=== PATIENT | male | born 1950 | race Caucasian/White ===

== ENCOUNTER 2018-08-27 15:37 | Observation (INO) | payer OTHER, MEDICARE ==
[2018-08-27] MEDS ORDERED: D50W 25 GM/50 ML SYRINGE IV PRN (17:47)
[2018-08-27] MEDS ORDERED: GLUCAGON 1 MG/VIAL IM PRN (17:47)
[2018-08-27 18:17] VITALS: BMI 28.3
[2018-08-27] MEDS ORDERED: HEPARIN 10,000 UNIT/10 ML VIAL IV ONE (18:30)
[2018-08-27] MEDS ORDERED: HEPARIN/D5W 25,000 UNIT/500 ML BAG IV PRN (18:30)
[2018-08-27 18:45] LABS: Absolute Lymphocytes (CBC) 2.1 K/uL (0.7-4.9); Absolute Monocytes 0.7 K/uL (0.1-1.3); Absolute Neutrophil 7.9 K/uL (1.8-8.0); Basophils % 0.8 % (0-1.3); Eosinophils % 1.6 % (0-4.4); Hematocrit 50.2 % (39.6-49.0); Lymphocytes % 19.1 % (15.3-44.8); MPV 8.3 fL (7.6-11.3); Monocytes % 6.4 % (3.3-12.3); RBC Red Blood Cell Count 5.42 M/uL (4.33-5.43)
[2018-08-27 18:49] LABS: Protime INR 0.93
[2018-08-27] MEDS: CLOPIDOGREL 75 MG TABLET PO SCH (18:52)
[2018-08-27] MEDS: ASPIRIN 81 MG CHEWABLE TABLET PO SCH (18:52)
[2018-08-27 18:58] LABS: Albumin 4.2 g/dL (3.4-5.0); Bilirubin Total 0.4 mg/dL (0.2-1.0); Potassium 4.4 mmol/L (3.5-5.1); Protein, Total 8.1 g/dL (6.4-8.2)
[2018-08-27] MEDS: INSULIN -REGULAR HUMAN 50 UNIT/0.5 ML ML SQ SCH (20:24)
[2018-08-27] MEDS ORDERED: predniSONE 20 MG TAB PO ONE (21:00)
[2018-08-27] MEDS: NICOTINE 7 MG/PAT TD SCH (22:03)
[2018-08-28 02:32] LABS: Urine Appearance TURBID; Urine Bilirubin NEGATIVE (NEG); Urine Blood 1+ (NEG); Urine Color YELLOW; Urine Glucose 3+ (NEG); Urine Protein 1+ (NEG); Urine Specific Gravity 1.015 (1.005-1.030)
[2018-08-28 03:04] LABS: Urine Bacteria LOADED /HPF (NONE SEEN); Urine Culture Reflex Order REFLEXED
[2018-08-28 03:05] LABS: Urine RBC <5 /HPF (NONE SEEN)
[2018-08-28 07:00] LABS: MPV 8.4 fL (7.6-11.3)
[2018-08-28] MEDS: INSULIN -REGULAR HUMAN 50 UNIT/0.5 ML ML SQ SCH ×3 (08:19→16:30)
[2018-08-28] MEDS: ASPIRIN 81 MG CHEWABLE TABLET PO SCH (09:23)
[2018-08-28] MEDS: CLOPIDOGREL 75 MG TABLET PO SCH (09:23)
[2018-08-28] MEDS ORDERED: HEPA 1000U/500MLS 2,000 UNIT/1,000 ML BAG IV ONE (10:27)
[2018-08-28] MEDS ORDERED: LIDOCAINE 1% MPF 5 ML VIAL ONE ×2 (10:28→10:43)
[2018-08-28] MEDS ORDERED: NA CHLORIDE 0.9% 500 ML ONE (10:50)
[2018-08-28] MEDS ORDERED: MIDAZOLAM HCL 2 MG/2 ML INJ ONE ×2 (11:01→11:13)
[2018-08-28] MEDS ORDERED: FENTANYL CITR 100 MCG/2 ML ONE (11:01)
[2018-08-28] MEDS ORDERED: METHYLPREDNISOLONE 125 MG INJ ONE (11:34)
[2018-08-28] MEDS ORDERED: HEPARIN 5000 UNIT/ML 1 ML VIAL ONE (11:47)
[2018-08-28] MEDS: NICOTINE 7 MG/PAT TD SCH (13:33)
[2018-08-28 13:39] VITALS: O2SAT 98
[2018-08-28 18:48] VITALS: BP 143/82; TEMP 97.7
--- NOTE | 2018-08-29 02:25 | HP ---
Date of Admission: 08/27/2018 Chief Complaint: Pain resting left leg. History Of Present Illness: A 68-year-old male, was brought to the office with pain in the left leg. His foot was found to be pale without any dorsalis pedis pulse. A diagnosis of acute on chronic is chemia was made. Outpatient Doppler study showed evidence of obstruction at popliteal artery level. At this point, the patient was admitted for observation for possible angioplasty. Past Medical History: Positive for type 2 diabetes and hypertension. Family History: Noncontributory. Personal History: Allergic to iodine. Review of Systems: No chest pain or shortness of breath. Physical Examination: General: Revealed 68-year-old male, in sgbo-[id number] pain. HEENT: Negative. Neck: Supple. JVD negative. Chest: Clear. Heart: Regular. Abdomen: Soft. Extremities: There is a pallor of the foot starting from mid leg all the way to the toes. Pedalis p ulses are absent. Femoral pulse is present. Assessment: 1.Acute on chronic limb ischemia, symptomatic. 2.Type 2 diabetes. Plan: Heparin IV. Cardiology consultation. VLADISLAV/KIMI Voice ID: [id number]
--- NOTE | 2018-08-29 13:07 | CON ---
Date of Consultation: 08/27/2018 Reason For Consultation: Acute limb ischemia. History Of Present Illness: Mr. Burciaga is a 68-year-old white male without any previous cardiac hist ory, but has a history of hypertension, diabetes, dyslipidemia, tobacco use. Has been having some cl audication over his left leg that has gotten much worse recently. He was sent from Dr. Lamb's offic e to my office for an arterial Doppler and was found to have a complete occlusion of his popliteal ar radha. Dr. Lamb has contacted me for consultation regarding Mr. Burciaga [facility] and [facility]. He was to be started on aspirin, Plavix, and hepari n, and re-evaluated with an angiography the second day. Past Medical History: His past medical history was otherwise stated above. Allergies: HE IS ALLERGIC TO IODINE. Review of Systems: Negative. Social History: Positive for tobacco. Family History: Noncontributory. Medications: Medications at home includes aspirin, glyburide. Physical Examination: Vital Signs: Stable. He was afebrile. He was in sinus rhythm. HEENT: Negative. Neck: Supple without any bruit, lymphadenopathy, JVD, or thyromegaly. Chest: Clear to auscultation and percussion. Cardiac Exam: Revealed a regular rhythm and rate. No murmurs, gallops, or rubs. Abdomen: Benign. Extremities: Revealed no clubbing, cyanosis, or edema. He had no pulses in the left foot. The foot was cool to touch. The right foot was normal. Diagnostic Data: Unremarkable. EKG and chest x-ray were negative. Impression And Plan: Peripheral arterial disease with 100% occlusion of the left popliteal. We will start aspirin, Plavix, heparin drip. We will plan abdominal angiogram in the morning with runoff an d see if we can intervene. We will pre-treat him with prednisone tonight and then tomorrow. He will get IV Solu-Medrol prior to the case because of his allergy to iodine. His other problems including hypertension, diabetes, and dyslipidemia are well controlled at this point. He will eventually need to have a cardiac workup for cardiac clearance if he needs any surgery. I will discuss the case fur ther with Dr. Lamb. NB/MODL Voice ID: [id number] Report ID: [id number]
--- NOTE | 2018-08-29 20:10 | OP ---
Surgeon: Virgilio Perea MD Proration Clerk: Inocente Issa. Procedure: Abdominal angiogram with runoff with an attempt of an angioplasty on the left popliteal t hat failed. Indication: Claudication, severe peripheral arterial disease and abnormal arterial Doppler. History Of Present Illness: Mr. Burciaga is 68, admitted with the limb ischemia on the left side and p laced on heparin, aspirin low and Plavix overnight, improved as far as his foot is concerned. Procedure In Detail: He was brought to the bolt labeler. He was given 2 mg of Versed for IV sedation. He was prepped and draped in the routine sterile fashion. A 6-Lao sheath introduced in the right common femoral artery. Angiography there was normal. Angio-Seal was used to close the case. Pigtai l catheter was used to do an abdominal angiogram with runoff, which showed normal renals, normal sple chucky and hepatic artery. Normal iliacs. His right lower extremity was normal. His left lower extrem ity showed a complete occlusion of his popliteal with the collateral flow below the knee. I was able to place a [place] wire very close to the lesion, advanced the GARNER catheter, bit close to the lesion for a better angiography that showed no distal reconstitution of the popliteal with collateral flow. I attempted to cross with a Venus wire and it was obvious that the lesion was very old and calcifi ed. Complications: None. Blood Loss: 5 cc. Final Diagnosis: Severe peripheral arterial disease. Total conscious sedation was 45 minutes. Plan: Plan is for medical therapy at this point with aspirin, Plavix and Trental, and referral to [facility] for possible, although doubtful revascularization. The case will be discussed with Dr Minal Lamb and the family. PER/KIMI Voice ID: [id number] Report ID: [id number]
== END 2018-08-28 17:45 | disposition home or self-care (01) ==
LOC: 4TH 17:25
PROVIDERS: ADMIT Internal Medicine; ATTEND Internal Medicine
DX: I70.212 Atherosclerosis of native arteries of extremities with intermittent claudication, left leg (principal); E11.51 Type 2 diabetes mellitus with diabetic peripheral angiopathy without gangrene; I10 Essential (primary) hypertension; E78.5 Hyperlipidemia, unspecified
CPT/HCPCS: 87088; 85025; 81001; 87086; 36415; 85049; 85610; 82962 ×4; 85730 ×5; 80053; 36200; 75630; 93923; C1893; C1760; J1644; J2250 ×2; J3010; J2930; G0378 ×2; C9601; J7512

== ENCOUNTER 2018-10-15 07:12 | Day surgery (SDC) | payer OTHER, MEDICARE ==
--- NOTE | 2018-10-11 10:44 | RAD REPORT ---
EXAM DESCRIPTION: RAD - Chest Pa And Lat (2 Views) - 10/11/2018 10:37 am CLINICAL HISTORY: preop Chest pain. COMPARISON: CHEST PA AND LAT 2 VIEW dated 09/11/2012 FINDINGS: The lungs are clear. The heart is normal in size. No displaced fractures. IMPRESSION: No acute or concerning finding suspected.
[2018-10-11 10:59] LABS: Absolute Lymphocytes (CBC) 1.4 K/uL (0.7-4.9); Absolute Monocytes 0.3 K/uL (0.1-1.3); Absolute Neutrophil 3.6 K/uL (1.8-8.0); Basophils % 1.2 % (0-1.3); Eosinophils % 2.6 % (0-4.4); Hematocrit 47.2 % (39.6-49.0); MPV 8.5 fL (7.6-11.3); Monocytes % 4.8 % (3.3-12.3); RBC Red Blood Cell Count 5.12 M/uL (4.33-5.43)
[2018-10-11 11:08] LABS: Protime INR 0.96
[2018-10-11 11:14] LABS: BUN Blood Urea Nitrogen 17 mg/dL (7-18); Bicarbonate 30 mmol/L (21-32); Glucose Level 310 mg/dL (74-106); Potassium 4.4 mmol/L (3.5-5.1); Sodium Level 140 mmol/L (136-145)
--- OUTSIDE RECORDS SUMMARY | 2018-10-15 07:14 | XMS REPORT | Clinical Summary ---
:1950 Author Organization [facility] Address [address] [place] [id number] Care Team Providers Name Role Phone Pcp, No Primary Care Provider Unavailable Allergies No Known Allergies Medications Medication Sig Dispensed Refills Start Date End Date Status tamsulosin (FLOMAX) 0.4 TK ONE C PO QHS 0 07/11/2018 Active mg Cap 24 hr capsule glimepiride (AMARYL) 2 MG TK 1 T PO BID 0 07/11/2018 Active tablet pentoxifylline (TRENTAL) Take 400 mg by 0 08/28/2018 Active 400 mg CR tablet mouth 2 (two) times daily. atorvastatin (LIPITOR) 40 Take 40 mg by 0 08/28/2018 Active MG tablet mouth daily. clopidogrel (PLAVIX) 75 Take 75 mg by 0 08/28/2018 Active mg tablet mouth every morning. losartan (COZAAR) 50 MG Take 50 mg by 0 Active tablet mouth daily. Active Problems Problem Noted Date Non-insulin dependent type 2 diabetes mellitus Hypertension Blood clotting tendency Overview: right calf DVT PAD (peripheral artery disease) Encounters Date Type Specialty Care Team Description 09/05/2018 Office Visit Cardiology Conrado Elaine Non-insulin dependent type 2 diabetes mellitus (HCC); MD Reynaldo Essential hypertension; Blood clotting tendency (HCC); PAD (peripheral artery disease) (HCC) after 10/14/2017 Family History Medical History Relation Name Comments Heart disease Brother Cancer Father Liver cancer Father Cancer Mother Diabetes Mother Relation Name Status Comments Brother Father Mother Social History Tobacco Use Types Packs/Day Years Used Date Current Every Day Smoker 1.5 45 Smokeless Tobacco: Never Used Tobacco Cessation: Ready to Quit: Yes Alcohol Use Drinks/Week oz/Week Comments No Alcohol Habits Answer Date Recorded How often do you have a drink containing alcohol? Never 09/05/2018 How many drinks containing alcohol do you have on a typical Not asked day when you are drinking? How often do you have six or more drinks on one occasion? Not asked Sex Assigned at Date Recorded Not on file Job Start Date Occupation Industry Not on file Not on file Not on file Travel History Travel Start Travel End No recent travel history available. Last Filed Vital Signs Vital Sign Reading Time Taken Blood Pressure 139/66 09/05/2018 10:04 AM [employer] Pulse 87 09/05/2018 10:04 AM [employer] Temperature 36.7 C (98 F) 09/05/2018 10:04 AM [employer] Respiratory Rate 14 09/05/2018 10:04 AM [employer] Oxygen Saturation 98% 09/05/2018 10:04 AM [employer] Inhaled Oxygen Concentration - - Weight 88 kg (194 lb) 09/05/2018 10:04 AM [employer] Height 176.5 cm (5' 9.5") 09/05/2018 10:04 AM [employer] Body Mass Index 28.24 09/05/2018 10:04 AM [employer] Plan of Treatment Not on file Results Not on fileafter 10/14/2017 Insurance Payer Benefit Plan / Group Subscriber ID Type Phone Address MEDICARE MEDICARE A B xxxxxxxxxxx Medicare MCR SUPPLEMENT/INDIVIDUAL AARP/[facility] xxxxxxxxxxx [facility]
[2018-10-15] MEDS ORDERED: NA CHLORIDE 0.9% 500 ML ONE (07:49)
[2018-10-15] MEDS ORDERED: MIDAZOLAM HCL 2 MG/2 ML INJ ONE ×2 (07:59→08:56)
[2018-10-15] MEDS ORDERED: HEPA 1000U/500MLS 1,000 UNIT/500 ML BAG IV ONE (07:59)
[2018-10-15] MEDS ORDERED: FENTANYL CITR 100 MCG/2 ML ONE (07:59)
[2018-10-15] MEDS ORDERED: NA CHLORIDE 0.9% 0 ML ONE (07:59)
[2018-10-15] MEDS ORDERED: ATROPINE SULF 1 MG/10 ML SYR IV ONE (07:59)
[2018-10-15] MEDS ORDERED: METHYLPREDNISOLONE 125 MG INJ ONE (08:53)
[2018-10-15] MEDS ORDERED: GLUCAGON 1 MG/VIAL IM PRN (10:49)
[2018-10-15] MEDS ORDERED: D50W 25 GM/50 ML SYRINGE IV PRN (10:49)
[2018-10-15 11:15] VITALS: BP 134/75; TEMP 99; O2SAT 97
[2018-10-15] MEDS ORDERED: INSULIN -REGULAR HUMAN 50 UNIT/0.5 ML ML SQ SCH (11:30)
--- NOTE | 2018-10-15 17:16 | OP ---
Surgeon: Virgilio Perea MD Tour Driver: Inocente Issa. Indications: Admitted to my service my service as an outpatient. He is a patient of Dr. Muniz, who w as admitted for left heart catheterization because of an abnormal stress test. Procedure In Detail: Mr. Burciaga was brought to the labor supervisor and prepped and draped in the routine st erile fashion. He was given 4 mg of Versed, 50 of fentanyl, 125 mg of IV Solu-Medrol because of dye allergies. The procedure that was performed was left heart catheterization and selective coronary ar teriogram. A 6-Syriac sheath was inserted in the right common femoral artery. StarClose was used to close the case. Angiography using Saw catheter showed triple-vessel disease with an 80% very lo ng RCA stenosis. The RCA was not dominant. There was a 99% ostial circumflex extended to the first OM with a UTE 1 flow and OM and the circumflex distally. He was very left dominant. He had an 80% stenosis in the LAD after the first diagonal, mid LAD. There were no complications. Blood Loss: 5 cc. Total conscious sedation was 30 minutes. Final Diagnosis: Severe coronary artery disease. Plan: For coronary artery bypass surgery. PER/KIMI Voice ID: [id number] Report ID: [id number]
== END 2018-10-15 11:05 | disposition home health service (06) ==
LOC: CCL 07:12
DX: I25.10 Atherosclerotic heart disease of native coronary artery without angina pectoris (principal); I65.23 Occlusion and stenosis of bilateral carotid arteries; I10 Essential (primary) hypertension; E78.6 Lipoprotein deficiency; E11.51 Type 2 diabetes mellitus with diabetic peripheral angiopathy without gangrene; N40.0 Benign prostatic hyperplasia without lower urinary tract symptoms; F17.210 Nicotine dependence, cigarettes, uncomplicated; Z79.84 Long term (current) use of oral hypoglycemic drugs; Z79.899 Other long term (current) drug therapy
CPT/HCPCS: 85025; 80048; 36415; 85610; 82962 ×2; 85730; 71046; 93454; C1893; J2250 ×2; J3010; J2930; J0583

== ENCOUNTER 2022-05-03 07:56 | Day surgery (SDC) | payer OTHER, MEDICARE ==
--- NOTE | 2022-05-01 13:58 | RAD REPORT ---
EXAM DESCRIPTION: Tavares Jensen (2 Views)05/01/2022 1:50 pm CLINICAL HISTORY: pre op for surgery prior heart surgery COMPARISON: 2019 FINDINGS: The lungs appear clear of acute infiltrate. The heart is normal size. Postsurgical changes involve chest IMPRESSION: No acute abnormalities displayed
[2022-05-01 14:04] LABS: Absolute Lymphocytes (CBC) 1.7 K/uL (0.7-4.9); Hematocrit 41.4 % (39.6-49.0); Lymphocytes % 22.2 % (15.3-44.8); MCV 89.5 fL (80-100); MPV 7.2 fL (7.6-11.3); RBC Red Blood Cell Count 4.62 M/uL (4.33-5.43)
[2022-05-01 14:15] LABS: Potassium 4.3 mmol/L (3.5-5.1)
[2022-05-01 14:23] LABS: SARS-CoV-2 Antigen Rapid Res Negative (Negative)
--- NOTE | 2022-05-03 06:36 | EKG ---
Test Date: 2022-05-01 Test Time: 13:34:42 Rail Director: JASON MEASUREMENT RESULTS: Intervals: Rate: 73 KS: 176 QRSD: 104 QT: 402 QTc: 442 [place]: P: 20 KS: 176 QRS: -52 T: 13 INTERPRETIVE STATEMENTS: Sinus rhythm with frequent premature ventricular complexes and premature atrial complexes Left axis deviation Inferior infarct, age undetermined Abnormal ECG No previous ECG available for comparison Electronically Signed On 05-03-22 06:31:59 CDT by Virgilio Perea
[2022-05-03] MEDS ORDERED: CEFAZOLIN SODIUM 1 GM/VIAL ONE (08:24)
[2022-05-03] MEDS ORDERED: NA CHLORIDE 0.9% 1,000 ML ONE (08:24)
[2022-05-03 08:38] LABS: Protime INR 1.3
[2022-05-03] MEDS ORDERED: BUPIVACAINE 0.5% PF 10 ML VIAL SQ ONE ×2 (08:56→09:54)
[2022-05-03] MEDS ORDERED: propofoL 200 MG/20 ML VIAL IV ONE (09:30)
[2022-05-03] MEDS ORDERED: FENTANYL CITR 100 MCG/2 ML ONE (09:30)
[2022-05-03] MEDS ORDERED: ONDANSETRON 4 MG/2 ML VIAL ONE (09:31)
[2022-05-03] MEDS ORDERED: MIDAZOLAM HCL 2 MG/2 ML INJ ONE (09:31)
[2022-05-03] MEDS ORDERED: LIDOCAINE 1% MPF 5 ML VIAL ONE (09:31)
[2022-05-03] MEDS ORDERED: dexAMETHasone 4 MG/ML VIAL ONE (09:59)
[2022-05-03] MEDS ORDERED: EPHEDRINE SULF 50 MG/ML VIAL ONE (10:04)
[2022-05-03] MEDS ORDERED: HYDROCODONE/APAP 7.5/325 MG TAB PO PRN (10:30)
--- NOTE | 2022-05-03 10:37 | P.OP ---
Date of Service: 05/03/22 Preop diagnosis: Inflamed cyst left upper back Postop diagnosis: Same Procedure performed: Wide excision left upper back mass 10 x 4 cm with layered closure Surgeon: Reid Vasquez MD Brim Rounder: NORMA Barnes Estimated blood loss: Minimal Specimen: Cultures and cyst Findings: As above Anesthesia: General Complications: None Drains: Quarter-inch Richard drain Fluids and blood products: Nonapplicable Disposition: Recovery room Operative note: Patient brought to the OR and placed in supine position. General anesthesia begun. Patient placed in the right lateral position. Patient prepped and draped in usual sterile fashion. Marcaine 0.5% infiltrated for postop pain control. 15 blade used to make a 10 x 4 cm incision. Entire cyst down through the deep subcutaneous tissue excised and sent to pathology as specimen. Wound irrigated and bleeding controlled with cautery. Flaps created. Quarter inch [place] drain placed and secured with 3-0 nylon. 0 chromic and 2- 0 chromic used to close the subcutaneous tissue. 3-0 nylon used to loosely close skin. Sterile dressing applied and patient awakened. Patient taken to recovery room in good general condition. CC: Dr. Lamb's office
[2022-05-03 11:58] VITALS: BP 108/50; TEMP 96.4; O2SAT 100
[2022-05-03] MEDS ORDERED: HYDROCODONE/APAP 7.5/325 MG TAB ONE (12:00)
== END 2022-05-03 12:13 | disposition home or self-care (01) ==
LOC: OR 07:56
PROVIDERS: ATTEND Surgery
PROC: 0JB70ZZ Excision of Back Subcutaneous Tissue and Fascia, Open Approach (ICD-10-PCS; principal; 2022-05-03 09:00)
DX: L72.0 Epidermal cyst (principal); Z20.822 Contact with and (suspected) exposure to COVID-19; I10 Essential (primary) hypertension; I25.10 Atherosclerotic heart disease of native coronary artery without angina pectoris; F17.210 Nicotine dependence, cigarettes, uncomplicated
CPT/HCPCS: 36415; 71046; 80048; 82947; 85025; 85610; 87070; 87075; 87205; 87811; 88304; 88305; 93005; J0690; J1100; J2001; J2250; J2405; J2704; J3010; J7030

== ENCOUNTER 2023-03-19 07:00 | Day surgery (SDC) | payer OTHER, MEDICARE ==
[2023-03-13 11:44] LABS: Absolute Lymphocytes (CBC) 1.2 K/uL (0.7-4.9); Hematocrit 42.5 % (39.6-49.0); MCV 90.6 fL (80-100); MPV 8.5 fL (7.6-11.3); Platelets 195 thou/uL (152-406); RBC Red Blood Cell Count 4.69 M/uL (4.33-5.43)
--- NOTE | 2023-03-13 11:48 | RAD REPORT ---
EXAM DESCRIPTION: RAD - Chest Pa And Lat (2 Views) - 03/13/2023 11:32 am CLINICAL HISTORY: Pre op pending heart catheterization Chest pain. COMPARISON: Chest Pa And Lat (2 Views) dated 05/01/2022; Chest Pa And Lat (2 Views) dated 10/11/2018; C HEST PA AND LAT 2 VIEW dated 09/11/2012 TECHNIQUE: PA and lateral views of the chest were obtained. FINDINGS: The lungs are hyperexpanded compatible with COPD. The heart is upper limit of normal in si ze. No fracture or aggressive bony process. Sternotomy wires. IMPRESSION: COPD without acute process identified. The USPSTF recommends annual screening for lung cancer with low-dose CT (LDCT) in adults aged 50 to 8 0 years who have a 20 pack-year smoking history and currently smoke or have quit within the past 15 y ears.
[2023-03-13 11:50] LABS: Protime INR 3.16
[2023-03-13 11:59] LABS: Potassium 4.2 mEq/L (3.5-5.1)
--- NOTE | 2023-03-14 17:37 | EKG ---
Test Date: 2023-03-13 Test Time: 11:11:20 Cytology Supervisor: BLANCHE MEASUREMENT RESULTS: Intervals: Rate: 77 DC: 188 QRSD: 100 QT: 360 QTc: 407 [place]: P: 69 DC: 188 QRS: -70 T: 64 INTERPRETIVE STATEMENTS: Sinus rhythm with frequent premature ventricular complexes Possible Left atrial enlargement Left axis deviation Inferior infarct, age undetermined Abnormal ECG Compared to ECG 03/13/2023 11:10:12 No significant changes Electronically Signed On 03-14-23 17:34:16 CDT by Dao Davis
--- NOTE | 2023-03-14 17:38 | EKG ---
Test Date: 2023-03-13 Test Time: 11:10:12 Sign Painter Helper: BLANCHE MEASUREMENT RESULTS: Intervals: Rate: 75 SC: 184 QRSD: 100 QT: 374 QTc: 417 [place]: P: 72 SC: 184 QRS: -73 T: 84 INTERPRETIVE STATEMENTS: Sinus rhythm with frequent and consecutive premature ventricular complexes Left axis deviation Inferior infarct, age undetermined Abnormal ECG Compared to ECG 05/01/2022 13:34:42 Atrial premature complex(es) no longer present Myocardial infarct finding still present Electronically Signed On 03-14-23 17:34:24 CDT by Dao Davis
[2023-03-19] MEDS ORDERED: NA CHLORIDE 0.9% 500 ML ONE (07:22)
[2023-03-19] MEDS ORDERED: HEPA 1000U/500MLS 2,000 UNIT/1,000 ML BAG IV ONE (07:41)
[2023-03-19] MEDS ORDERED: CLOPIDOGREL 75 MG TABLET ONE (07:42)
[2023-03-19] MEDS ORDERED: FENTANYL CITR 100 MCG/2 ML ONE (07:42)
[2023-03-19] MEDS ORDERED: MIDAZOLAM HCL 2 MG/2 ML INJ ONE (07:42)
[2023-03-19] MEDS ORDERED: DIPHENHYDRAMINE 50 MG/ML VIAL ONE (07:42)
[2023-03-19] MEDS ORDERED: ATROPINE SULF 1 MG/10 ML SYR IV ONE (07:43)
[2023-03-19] MEDS ORDERED: ASPIRIN 325 MG TAB ONE (07:43)
[2023-03-19] MEDS ORDERED: METHYLPREDNISOLONE 125 MG INJ ONE (07:43)
[2023-03-19] MEDS ORDERED: TICAGRELOR 90 MG TABLET PO ONE (07:43)
[2023-03-19] MEDS ORDERED: LIDOCAINE 1% 20 ML MDV ONE (08:21)
[2023-03-19] MEDS ORDERED: HEPARIN 10,000 UNIT/10 ML VIAL IV ONE (08:52)
[2023-03-19 09:28] VITALS: TEMP 97.2
[2023-03-19 10:43] VITALS: BP 121/71; O2SAT 97
--- NOTE | 2023-03-19 18:00 | OP ---
Date of Procedure: 03/19/2023 Surgeon: BRIGID RITTER Procedures Performed: Selective coronary angiogram with bypass graft study. Indication: Chest pain with abnormal stress test. Access: Left femoral artery, 6-Malawian, closed with 6-Malawian Angio-Seal. An attempt to access the [facility] femoral artery failed, status post manual pressure. Complications: None. Bleeding: Less than 20 mL. Anesthesia: Total sedation time was 45 minutes, used fentanyl, Versed. Description Of Procedure: After risks, benefits, and alternatives were explained, patient agreed to proceed and signed informal consent. Patient was brought into the cardiac catheterization laboratory , prepped and draped in usual sterile fashion. Then, I tried to access right femoral artery. I was able to cannulate the vessel, however, could not send the sheath in due to heavy scar tissue, so the access was abandoned and then manual pressure was applied for 20 minutes with good hemostasis. Then, I accessed the left femoral artery using micropuncture kit, ultrasound guidance, fluoroscopy, placed 6-Malawian [place] sheath. We took a 6-Malawian JL4 catheter into the aortic root over a J-wire, engag ed left main, took standard views and then exchanged for a 6-Malawian JR4 catheter into the aortic root , engaged the RCA, SVG to OM and GARNER to LAD and took standard views and the catheter was removed. S ashley was removed. 6-Malawian Angio-Seal was used for closure. Good hemostasis. Findings: 1.Left main; long with luminal irregularities. 2.LAD; proximal 40%, mid becomes 90%, and diagonal branches have luminal irregularities. 3.Left circumflex is 99% to 100% proximally. 4.RCA, very small, nondominant, 80% diffuse proximal to distal. Bypass Graft Study: 1.Patent GARNER to LAD. 2.Patent SVG to OM that is very large and dominant. Conclusion: 1.Severe multivessel [place] coronary artery disease. 2.Patent SVG graft to OM and GARNER to LAD. 3.Severe RCA disease, but small, nondominant and the left circumflex is dominant with good perfusion through the graft. Plan: Medical management. SR/MODL Voice ID: [id number] Report ID: [id number]
== END 2023-03-19 10:55 | disposition home or self-care (01) ==
LOC: CCL 07:00
PROVIDERS: ATTEND Internal Medicine
DX: I25.10 Atherosclerotic heart disease of native coronary artery without angina pectoris (principal); I25.82 Chronic total occlusion of coronary artery; I65.23 Occlusion and stenosis of bilateral carotid arteries; I70.213 Atherosclerosis of native arteries of extremities with intermittent claudication, bilateral legs; I10 Essential (primary) hypertension; E78.2 Mixed hyperlipidemia; E11.9 Type 2 diabetes mellitus without complications; Z95.1 Presence of aortocoronary bypass graft; Z87.891 Personal history of nicotine dependence; Z91.041 Radiographic dye allergy status; Z79.899 Other long term (current) drug therapy
CPT/HCPCS: 93005 ×2; 85025; 80048; 36415; 85610; 85730; 71046; 93454; 76937; C1893; Q9966; C1760; G0269; J2001; J1200; J2250; J3010; J2930; J7040; J0461

== ENCOUNTER 2024-07-01 12:00 | Day surgery (SDC) | payer OTHER, MEDICARE ==
[2024-06-27 16:00] LABS: Absolute Basophils 0.1 K/uL (0-0.5); Absolute Eosinophils 0.1 K/uL (0-0.5); Absolute Lymphocytes (CBC) 1.9 K/uL (0.7-4.9); Absolute Monocytes 0.6 K/uL (0.1-1.3); Basophils % 0.7 % (0-1.3); Eosinophils % 1.4 % (0-4.4); Hematocrit 40.9 % (39.6-49.0); Hemoglobin 13.8 g/dL (13.6-17.9); Lymphocytes % 17.4 % (15.3-44.8); MCH 31.2 pg (27.0-35.0); MCHC 33.7 g/dL (32.0-36.0); MCV 92.8 fL (80-100); MPV 7.6 fL (7.6-11.3); Monocytes % 5.8 % (3.3-12.3); Neutrophils % 74.7 % (41.7-73.7); Platelets 234 thou/uL (152-406); Red Cell Distribution Width 13.5 % (12.1-15.2)
--- NOTE | 2024-06-27 16:05 | RAD REPORT ---
EXAMINATION: TWO VIEW CHEST XR CLINICAL INDICATION: pre op TECHNIQUE: 2 views of the chest was performed. COMPARISON: No prior exam. FINDINGS: The lungs are well inflated and clear. The heart is normal in size. No displaced fractures evident. S ternotomy wires. IMPRESSION: No acute or significant abnormalities.
[2024-06-27 16:09] LABS: PT Prothrombin Time 50.5 SECONDS (9.4-12.5); PTT, Activated Partial Thromb 56.5 SECONDS (24.3-36.9); Protime INR 4.72
[2024-06-27 16:12] LABS: Anion Gap 6.6 mEq/L (5.0-15.0); Potassium 3.6 mEq/L (3.5-5.1)
[2024-07-01 12:51] LABS: PT Prothrombin Time 15.1 SECONDS (9.4-12.5); Protime INR 1.36
[2024-07-01] MEDS ORDERED: HEPARIN 10,000 UNIT/10 ML VIAL IV ONE (13:52)
[2024-07-01] MEDS ORDERED: HEPA 1000U/500MLS 1,000 UNIT/500 ML BAG IV ONE (13:52)
[2024-07-01] MEDS ORDERED: LIDOCAINE 1% 20 ML MDV ONE (13:53)
[2024-07-01] MEDS ORDERED: VERAPAMIL HCL 10 MG/4 ML VIAL IV ONE (13:53)
[2024-07-01] MEDS ORDERED: MIDAZOLAM HCL 2 MG/2 ML INJ ONE (13:53)
[2024-07-01] MEDS ORDERED: TICAGRELOR 90 MG TABLET PO ONE (13:54)
[2024-07-01] MEDS ORDERED: ASPIRIN 325 MG TAB ONE (13:54)
[2024-07-01] MEDS ORDERED: CLOPIDOGREL 75 MG TABLET ONE (13:54)
[2024-07-01] MEDS ORDERED: ATROPINE SULF 1 MG/10 ML SYR IV ONE (13:54)
[2024-07-01] MEDS ORDERED: HEPARIN 5000 UNIT/ML 1 ML VIAL ONE (13:54)
[2024-07-01] MEDS ORDERED: FENTANYL CITR 100 MCG/2 ML ONE (13:54)
[2024-07-01] MEDS ORDERED: METHYLPREDNISOLONE 125 MG INJ ONE (14:13)
[2024-07-01] MEDS ORDERED: DIPHENHYDRAMINE 50 MG/ML VIAL ONE (14:13)
[2024-07-01] MEDS: NA CHLORIDE 0.9% 500 ML ONE (15:05)
[2024-07-01 16:04] VITALS: TEMP 98.5
[2024-07-01 16:33] VITALS: O2SAT 97
[2024-07-01 17:54] VITALS: BP 136/62
== END 2024-07-01 17:00 | disposition home or self-care (01) ==
LOC: CCL 12:00
PROVIDERS: ATTEND Internal Medicine
DX: I25.10 Atherosclerotic heart disease of native coronary artery without angina pectoris (principal); I25.82 Chronic total occlusion of coronary artery; I11.0 Hypertensive heart disease with heart failure; I50.22 Chronic systolic (congestive) heart failure; I65.23 Occlusion and stenosis of bilateral carotid arteries; I70.213 Atherosclerosis of native arteries of extremities with intermittent claudication, bilateral legs; E78.2 Mixed hyperlipidemia; E11.9 Type 2 diabetes mellitus without complications; N40.0 Benign prostatic hyperplasia without lower urinary tract symptoms; Z95.1 Presence of aortocoronary bypass graft; Z79.01 Long term (current) use of anticoagulants; Z79.82 Long term (current) use of aspirin; Z79.899 Other long term (current) drug therapy; Z91.041 Radiographic dye allergy status; Z82.49 Family history of ischemic heart disease and other diseases of the circulatory system
CPT/HCPCS: 85025; 80048; 36415 ×2; 85610 ×2; 82947; 85730; 71046; 93459; 76937; C1893; Q9966; J2003; J1200; J2250; J3010; J2919; J7040; 93458; 99152; 99153; J0461; J1644